=== PATIENT | female | born 1930 | race Caucasian/White ===

== ENCOUNTER 2019-03-26 13:34 | Emergency (ER) | payer OTHER ==
[~2019-03-26] VITALS: Ht 154.9 cm; Wt 80.3 kg
[2019-03-26 13:48] VITALS: Ht 154.9 cm; Wt 80.3 kg
[2019-03-26 14:57] LABS: microscopic required? NO
[2019-03-26 15:12] LABS: PLATELET COUNT 359 x10^3mcL (130-400); RED CELL DISTRIBUTION WIDTH 14.4 % (11.5-14.5)
[2019-03-26 15:15] LABS: urine erythrocyte NEGATIVE (NEGATIVE)
[2019-03-26 15:19] LABS: CARBON DIOXIDE 28.3 mmol/L (21-32); CHLORIDE SERUM 103 mmol/L (98-107); GLUCOSE SERUM 66 mg/dL (74-106); POTASSIUM SERUM 3.4 mmol/L (3.5-5.1); SODIUM SERUM 139 mmol/L (136-145)
[2019-03-26 15:26] LABS: ALKALINE PHOSPHATASE 142 U/L (46-116); ALT/SGPT 58 U/L (14-59); AST/SGOT 56 U/L (15-37)
[2019-03-26 15:30] LABS: ALBUMIN 3.3 g/dL (3.4-5.0); TOTAL PROTEIN, SERUM 8.6 g/dL (6.4-8.2)
[2019-03-26 17:39] VITALS: BP 110/63
== END 2019-03-26 17:39 | disposition home or self-care (01) ==
LOC: ED 13:34
PROVIDERS: Emergency Medicine
DX: M54.5 Low back pain (principal); I50.9 Heart failure, unspecified; E11.9 Type 2 diabetes mellitus without complications; E03.9 Hypothyroidism, unspecified; Z86.711 Personal history of pulmonary embolism
CPT/HCPCS: J2270; J2405